=== PATIENT | male | born 1995 | race Caucasian/White ===

== ENCOUNTER 2021-05-16 17:25 | Emergency (ER) | payer SELFPAY ==
[~2021-05-16] VITALS: Ht 175.3 cm; Wt 68.9 kg
[2021-05-16 17:40] VITALS: BP 132/93
--- NOTE | 2021-05-16 17:43 | NUR ---
pt in tent for covid precautions
[2021-05-16] MEDS ORDERED: ACET-10509 PO (18:35)
[2021-05-16] MEDS ORDERED: PROM118S5 PO (18:35)
[2021-05-16 18:51] VITALS: BP 132/93
--- NOTE | 2021-05-16 18:52 | NUR ---
Pt assessed by TITUS Naylor, no nursing interventions performed
--- NOTE | 2021-05-16 18:52 | NUR ---
Patient discharged with v/s stable. Written and verbal after care instructions given and explained. Patient alert, oriented and verbalized understanding of instructions. Ambulatory with steady gait. All questions addressed prior to discharge. ID band removed. Patient advised to follow up with PMD. Rx of tylenol extra strength and promethazine dm syrup given. Patient educated on indication of medication including possible reaction and side effects. Opportunity to ask questions provided and answered.
== END 2021-05-16 18:52 | disposition home or self-care (01) ==
LOC: MED 17:25
DX: B34.9 Viral infection, unspecified (principal)
CPT/HCPCS: 71045; 99283